=== PATIENT | female | born 1985 | race Two or more races ===

== ENCOUNTER 2018-06-23 04:00 | Emergency (ER) | payer SELFPAY ==
--- NOTE | 2018-06-23 04:09 | EDPHY ---
H & P Stated Complaint: RUQ abd pain and "I feel like ice my right hand" Time Seen by Provider: 06/23/18 04:09 HPI/ROS: HPI CHIEF COMPLAINT: Right upper quadrant abdominal pain. HISTORY OF PRESENT ILLNESS: Very pleasant 32-year-old female, denies any significant medical history does not take any daily medications except vitamins , she presents emergency room with right upper quadrant abdominal pain that started around 1:00 a.m. It is now 4:15 a.m.. It has been associated with nausea but no vomiting. No fever. Main complaint right upper quadrant sharp stabbing pain. Took ibuprofen prior to arrival did not help. She states she has had some right upper quadrant abdominal pain on and off over the past few weeks but usually goes away. Past Medical History: Denies significant medical history Past Surgical History: Social History: Denies drugs alcohol tobacco. Family History: Noncontributory ROS REVIEW OF SYSTEMS: 10 Systems were reviewed and negative with the exception of the elements mentioned in the history of present illness. Exam Constitutional triage nursing summary reviewed, vital signs reviewed, awake/ alert. Eyes normal conjunctivae and sclera, EOMI, PERRLA. HENT normal inspection, atraumatic, moist mucus membranes, no epistaxis, neck supple/ no meningismus, no raccoon eyes. Respiratory clear to auscultation bilaterally, normal breath sounds, no respiratory distress, no wheezing. Cardiovascular rate normal, regular rhythm, no murmur, no edema, distal pulses normal. Gastrointestinal mild tender palpation right upper quadrant,, no rebound, no guarding, normal bowel sounds, no distension, no pulsatile mass. Genitourinary no CVA tenderness. Musculoskeletal no midline vertebral tenderness, full range of motion, no calf swelling, no tenderness of extremities, no meningismus, good pulses, neurovascularly intact. Skin pink, warm, & dry, no rash, skin atraumatic. Neurologic awake, alert and oriented x 3, AAOx3, moves all 4 extremities equally, motor intact, sensory intact, CN II-XII intact, normal cerebellar, normal vision, normal speech. Psychiatric normal mood/affect. Heme/Lymph/Immune no lymphadenopathy. Differential diagnosis includes but is not limited to and in no particular order : Bowel obstruction, appendicitis, gallbladder disease, diverticulitis, colitis , enteritis, perforated viscus, gastritis, GERD, esophagitis, urinary tract infection, pyelonephritis, kidney stones Medical Decision Making: Plan for this patient IV establishment IV fluid bolus , ultrasound right upper quadrant to rule out gallbladder disease, IV Dilaudid 0.5 mg for pain control IV Zofran 4 mg for nausea, gentle IV fluids. Basic blood work. Re-evaluate. Re-evaluation: Ultrasound right upper quadrant shows gallstones but no evidence of pericholecystic fluid. No evidence of gallbladder wall thickening. No evidence of acute cholecystitis. Discussed this at length with the patient. [employer] ladies' locker room attendant was used. Answered all her questions. Her pain is well controlled at this time with IV Dilaudid. Abdomen is soft nontender. Patient agreeable going home. Recommend staying away from fatty greasy foods. Recommend following up with surgery as needed. Return to the ER for worsening abdominal pain. Fever, vomiting. Source: Patient - Personal History LMP (Females 10-55): 8-14 Days Ago Current Tetanus/Diphtheria Vaccine: No Current Tetanus Diphtheria and Acellular Pertussis (TDAP): No - Medical/Surgical History Hx Asthma: No Hx Chronic Respiratory Disease: No Hx Diabetes: No Hx Cardiac Disease: No Hx Renal Disease: No Hx Cirrhosis: No Hx Alcoholism: No Hx HIV/AIDS: No Hx Splenectomy or Spleen Trauma: No Other PMH: back surgery, , right breast surgery - Social History Smoking Status: Never smoked Constitutional: Initial Vital Signs Temperature (C) 37.0 C 06/23/18 04:03 Heart Rate 69 06/23/18 04:03 Respiratory Rate 16 06/23/18 04:03 Blood Pressure 128/84 H 06/23/18 04:03 O2 Sat (%) 96 06/23/18 04:03 O2 Delivery Mode Room Air Allergies/Adverse Reactions: No Known Allergies Allergy (Unverified 06/23/18 04:07) Home Medications: Medication Instructions Recorded NK [No Known Home Meds] 06/23/18 Medical Decision Making - Data Points Laboratory Results: Laboratory Results 06/23/18 04:30 06/23/18 04:30 06/23/18 06/23/18 06/23/18 04:30 04:30 04:30 WBC 9.53 10^3/uL H 10^3/uL (3.80-9.50) RBC 4.54 10^6/uL 10^6/uL (4.18-5.33) Hgb 13.9 g/dL g/dL (12.6-16.3) Hct 40.4 % % (38.0-47.0) MCV 89.0 fL fL (81.5-99.8) MCH 30.6 pg pg (27.9-34.1) MCHC 34.4 g/dL g/dL (32.4-36.7) RDW 12.0 % % (11.5-15.2) Plt Count 259 10^3/uL 10^3/uL (150-400) MPV 11.1 fL fL (8.7-11.7) Neut % (Auto) 69.5 % % (39.3-74.2) Lymph % (Auto) 22.6 % % (15.0-45.0) [place] % (Auto) 5.9 % % (4.5-13.0) Eos % (Auto) 1.6 % % (0.6-7.6) Baso % (Auto) 0.2 % L % (0.3-1.7) Nucleat RBC Rel Count 0.0 % % (0.0-0.2) Absolute Neuts (auto) 6.63 10^3/uL H 10^3/uL (1.70-6.50) Absolute Lymphs (auto) 2.15 10^3/uL 10^3/uL (1.00-3.00) Absolute Monos (auto) 0.56 10^3/uL 10^3/uL (0.30-0.80) Absolute Eos (auto) 0.15 10^3/uL 10^3/uL (0.03-0.40) Absolute Basos (auto) 0.02 10^3/uL 10^3/uL (0.02-0.10) Absolute Nucleated RBC 0.00 10^3/uL 10^3/uL (0-0.01) Immature Gran % 0.2 % % (0.0-1.1) Immature Gran # 0.02 10^3/uL 10^3/uL (0.00-0.10) Sodium 139 mEq/L mEq/L (135-145) Potassium 4.1 mEq/L mEq/L (3.3-5.0) Chloride 103 mEq/L mEq/L (97-110) Carbon Dioxide 24 mEq/l mEq/l (22-31) Anion Gap 12 mEq/L mEq/L (8-16) BUN 21 mg/dL mg/dL (7-23) Creatinine 0.5 mg/dL L mg/dL (0.6-1.0) Estimated GFR > 60 Glucose 110 mg/dL H mg/dL (70-100) Calcium 9.9 mg/dL mg/dL (8.5-10.4) Total Bilirubin 0.7 mg/dL mg/dL (0.1-1.4) Conjugated Bilirubin 0.1 mg/dL mg/dL (0.0-0.5) Unconjugated Bilirubin 0.6 mg/dL mg/dL (0.0-1.1) AST 20 IU/L IU/L (14-46) ALT 32 IU/L IU/L (9-52) Alkaline Phosphatase 79 IU/L IU/L (38-126) Total Protein 7.4 g/dL g/dL (6.3-8.2) Albumin 4.3 g/dL g/dL (3.5-5.0) Lipase 256 IU/L IU/L (23-300) Beta HCG, Qual NEGATIVE Urine Color Urine Appearance Urine pH Ur Specific [place] Urine Protein Urine Ketones Urine Blood Urine Nitrate Urine Bilirubin Urine Urobilinogen Ur Leukocyte Esterase Urine Glucose 06/23/18 04:20 WBC RBC Hgb Hct MCV MCH MCHC RDW Plt Count MPV Neut % (Auto) Lymph % (Auto) [place] % (Auto) Eos % (Auto) Baso % (Auto) Nucleat RBC Rel Count Absolute Neuts (auto) Absolute Lymphs (auto) Absolute Monos (auto) Absolute Eos (auto) Absolute Basos (auto) Absolute Nucleated RBC Immature Gran % Immature Gran # Sodium Potassium Chloride Carbon Dioxide Anion Gap BUN Creatinine Estimated GFR Glucose Calcium Total Bilirubin Conjugated Bilirubin Unconjugated Bilirubin AST ALT Alkaline Phosphatase Total Protein Albumin Lipase Beta HCG, Qual Urine Color YELLOW Urine Appearance CLEAR Urine pH 5.0 (5.0-7.5) Ur Specific [place] 1.026 (1.002-1.030) Urine Protein NEGATIVE (NEGATIVE) Urine Ketones NEGATIVE (NEGATIVE) Urine Blood NEGATIVE (NEGATIVE) Urine Nitrate NEGATIVE (NEGATIVE) Urine Bilirubin NEGATIVE (NEGATIVE) Urine Urobilinogen NEGATIVE EU EU (0.2-1.0) Ur Leukocyte Esterase NEGATIVE (NEGATIVE) Urine Glucose NEGATIVE (NEGATIVE) Medications Given: Discontinued Medications Hydromorphone HCl (Dilaudid) 0.5 mg IVP EDNOW ONE Stop: 06/23/18 04:16 Last Admin: 06/23/18 04:37 Dose: 0.5 mg Sodium Chloride (Ns) 1,000 mls @ 0 mls/hr IV EDNOW ONE; Wide Open PRN Reason: Protocol Stop: 06/23/18 04:16 Last Admin: 06/23/18 04:36 Dose: 1,000 mls Ondansetron HCl (Zofran) 4 mg IVP EDNOW ONE Stop: 06/23/18 04:16 Last Admin: 06/23/18 04:37 Dose: 4 mg Departure - Departure Disposition: Home, Routine, Self-Care Clinical Impression: Gallstones Abdominal pain Qualifiers: Abdominal location: right upper quadrant Qualified Code(s): R10.11 - Right upper quadrant pain Condition: Good Instructions: Biliary Colic (ED), Gallstones (ED), Acute Abdominal Pain (ED) Referrals: NONE *PRIMARY CARE P,. [Primary Care Provider] - As per Instructions Reece Raymundo MD [Medical Doctor] - As per Instructions
[2018-06-23] MEDS ORDERED: NS 1,000 ML IV ONE (04:15)
[2018-06-23] MEDS ORDERED: HYDROmorphONE/DILAUDID 2 MG/ML INJ IVP ONE (04:15)
[2018-06-23] MEDS ORDERED: ONDANSETRON 4 MG/2 ML VIAL IVP ONE (04:15)
[2018-06-23 04:35] LABS: PLATELET COUNT 259 10^3/uL (150-400)
[2018-06-23 06:16] VITALS: BP 123/80
== END 2018-06-23 06:12 | disposition home or self-care (01) ==
DX: K80.20 Calculus of gallbladder without cholecystitis without obstruction (principal); R10.11 Right upper quadrant pain
CPT/HCPCS: 96374; J1170; J2405

== ENCOUNTER 2018-08-12 19:43 | Emergency (ER) | payer OTHER ==
[2018-08-12] MEDS ORDERED: NS 1,000 ML IV ONE (19:59)
[2018-08-12] MEDS ORDERED: HYDROmorphONE/DILAUDID 2 MG/ML INJ IVP ONE (19:59)
[2018-08-12 20:30] LABS: PLATELET COUNT 215 10^3/uL (150-400)
[2018-08-12] MEDS ORDERED: DICYCLOMINE 10 MG CAP PO ONE (22:15)
--- NOTE | 2018-08-13 00:26 | EDPHY ---
H & P Stated Complaint: R upper quad pain x 3 days, worse w/ eating Time Seen by Provider: 08/12/18 19:54 HPI/ROS: Chief complaint: Abdominal pain History of present illness: This is a 32-year-old female who presents to the emergency department for evaluation of abdominal pain. She reports she has had pain for approximately the last 4 days. Pain is in the right, upper aspect of the abdomen. She has had some nausea and vomiting. It is worse after she eats. She has a known history of cholelithiasis, diagnosed at this hospital in May. This feels similar. No report of fevers. No report of changes in bowel habits. No report of changes of urinary habits. Review of systems: A 10 point review of systems was obtained and other than described above was negative - Personal History LMP (Females 10-55): 15-21 Days Ago - Medical/Surgical History Hx Asthma: No Hx Chronic Respiratory Disease: No Hx Diabetes: No Hx Cardiac Disease: No Hx Renal Disease: No Hx Cirrhosis: No Hx Alcoholism: No Hx HIV/AIDS: No Hx Splenectomy or Spleen Trauma: No Other PMH: back surgery, , right breast surgery - Social History Smoking Status: Never smoked - Physical Exam Exam: General Appearance: Alert, nontoxic. Eyes: Pupils equal and round no pallor or injection. ENT, Mouth: Mucous membranes moist. Respiratory: There are no retractions, lungs are clear to auscultation. Cardiovascular: Regular rate and rhythm. Gastrointestinal: Bowel sounds are normal. Abdomen is soft and nondistended. There is tenderness in the right upper quadrant. Positive Barber sign. Neurological: Alert and oriented x4. Strength and sensation intact and symmetrical. Skin: Warm and dry, no rashes. Musculoskeletal: Neck is supple non tender. Extremities are symmetrical, full range of motion. Psychiatric: Patient is oriented X 3, there is no agitation. Constitutional: Initial Vital Signs Temperature (C) 37.0 C 08/12/18 19:47 Heart Rate 88 08/12/18 19:47 Respiratory Rate 20 18 19:47 Blood Pressure 107/86 H 18 19:47 O2 Sat (%) 99 08/12/18 19:47 O2 Delivery Mode Room Air O2 (L/minute) 2 Allergies/Adverse Reactions: No Known Allergies Allergy (Verified 08/12/18 19:46) Home Medications: Medication Instructions Recorded NK [No Known Home Meds] 06/23/18 Medical Decision Making - Diagnostics Imaging Results: Imaging Impressions Abdomen Ultrasound 08/12/18 19:59 Impression: Cholelithiasis with thickening of the gallbladder wall and positive Barber's sign, Suggestive of acute cholecystitis. Imaging: Discussed imaging studies w/ call centre supervisor Radiologist ED Course/Re-evaluation: Patient is discussed with my secondary supervising physician Dr. Ralph Alvarado. Patient presents with abdominal pain. Ultimately evaluation reveals acute cholecystitis. In addition she does appear to be although she states she had a positive test last week and suspected as much. Pain has been well controlled. I have consulted with on-call general surgery, Dr. Jose Norris. He has taken considerable time talking with the patient using an railroad crane operator to ensure no errors talking with patient. Patient was offered admission. She has declined. She will be discharged home. She will be given Bentyl 20 mg to take every 8 hr and then lay on her right side per Dr. Norris. She is asked to follow up with general surgery as well as an OBGYN. Home care is discussed. She is given strict return precautions. Differential Diagnosis: Included but not limited to gastritis, gastroenteritis, biliary tract disease, pancreatitis, colitis, urinary tract disease, an associated complications - Data Points Laboratory Results: Laboratory Results 08/12/18 20:15 08/12/18 20:15 08/12/18 08/12/18 08/12/18 20:42 20:15 20:15 WBC RBC Hgb Hct MCV MCH MCHC RDW Plt Count MPV Neut % (Auto) Lymph % (Auto) [place] % (Auto) Eos % (Auto) Baso % (Auto) Nucleat RBC Rel Count Absolute Neuts (auto) Absolute Lymphs (auto) Absolute Monos (auto) Absolute Eos (auto) Absolute Basos (auto) Absolute Nucleated RBC Immature Gran % Immature Gran # Sodium 139 mEq/L mEq/L (135-145) Potassium 3.8 mEq/L mEq/L (3.3-5.0) Chloride 102 mEq/L mEq/L (97-110) Carbon Dioxide 28 mEq/l mEq/l (22-31) Anion Gap 9 mEq/L mEq/L (6-14) BUN 10 mg/dL mg/dL (7-23) Creatinine 0.6 mg/dL mg/dL (0.6-1.0) Estimated GFR > 60 Glucose 111 mg/dL H mg/dL (70-100) Calcium 9.5 mg/dL mg/dL (8.5-10.4) Total Bilirubin 0.5 mg/dL mg/dL (0.1-1.4) Conjugated Bilirubin 0.2 mg/dL mg/dL (0.0-0.5) Unconjugated Bilirubin 0.3 mg/dL mg/dL (0.0-1.1) AST 17 IU/L IU/L (14-46) ALT 31 IU/L IU/L (9-52) Alkaline Phosphatase 80 IU/L IU/L (38-126) Total Protein 7.1 g/dL g/dL (6.3-8.2) Albumin 4.2 g/dL g/dL (3.5-5.0) Lipase 199 IU/L IU/L (23-300) Beta HCG, Qual POSITIVE Beta HCG, Quant 5182.50 mIU/mL H mIU/mL (0.00-4.83) 08/12/18 20:15 WBC 12.71 10^3/uL H 10^3/uL (3.80-9.50) RBC 4.21 10^6/uL 10^6/uL (4.18-5.33) Hgb 12.8 g/dL g/dL (12.6-16.3) Hct 37.3 % L % (38.0-47.0) MCV 88.6 fL fL (81.5-99.8) MCH 30.4 pg pg (27.9-34.1) MCHC 34.3 g/dL g/dL (32.4-36.7) RDW 12.5 % % (11.5-15.2) Plt Count 215 10^3/uL 10^3/uL (150-400) MPV 11.1 fL fL (8.7-11.7) Neut % (Auto) 72.9 % % (39.3-74.2) Lymph % (Auto) 18.3 % % (15.0-45.0) [place] % (Auto) 7.1 % % (4.5-13.0) Eos % (Auto) 1.3 % % (0.6-7.6) Baso % (Auto) 0.2 % L % (0.3-1.7) Nucleat RBC Rel Count 0.0 % % (0.0-0.2) Absolute Neuts (auto) 9.27 10^3/uL H 10^3/uL (1.70-6.50) Absolute Lymphs (auto) 2.33 10^3/uL 10^3/uL (1.00-3.00) Absolute Monos (auto) 0.90 10^3/uL H 10^3/uL (0.30-0.80) Absolute Eos (auto) 0.16 10^3/uL 10^3/uL (0.03-0.40) Absolute Basos (auto) 0.02 10^3/uL 10^3/uL (0.02-0.10) Absolute Nucleated RBC 0.00 10^3/uL 10^3/uL (0-0.01) Immature Gran % 0.2 % % (0.0-1.1) Immature Gran # 0.03 10^3/uL 10^3/uL (0.00-0.10) Sodium Potassium Chloride Carbon Dioxide Anion Gap BUN Creatinine Estimated GFR Glucose Calcium Total Bilirubin Conjugated Bilirubin Unconjugated Bilirubin AST ALT Alkaline Phosphatase Total Protein Albumin Lipase Beta HCG, Qual Beta HCG, Quant Medications Given: Discontinued Medications Dicyclomine HCl (Bentyl) 20 mg PO EDNOW ONE Stop: 08/12/18 22:16 Last Admin: 08/12/18 22:20 Dose: 20 mg Hydromorphone HCl (Dilaudid) 1 mg IVP EDNOW ONE Stop: 08/12/18 20:00 Last Admin: 08/12/18 20:14 Dose: 1 mg Sodium Chloride (Ns) 1,000 mls @ 0 mls/hr IV EDNOW ONE; Wide Open PRN Reason: Protocol Stop: 08/12/18 20:00 Last Admin: 08/12/18 20:14 Dose: 1,000 mls Departure - Departure Disposition: Against Medical Advice Clinical Impression: Cholecystitis Condition: Fair
[2018-08-13 00:50] VITALS: BP 122/63
--- NOTE | 2018-08-13 01:45 | GCON ---
REASON FOR CONSULTATION: Cholecystitis with biliary colic, cholelithiasis. Interview/exam was carried out using the video knife machine operator. HISTORY: The patient is a 32-year-old [place] female, who moved to [place] in 2010. She has 4 children (2-1/2, 5, 7, 8) and is currently . In May of this year (prior to ), she was seen at [facility] for biliary colic and cholelithiasis. She was advised to have her gallbladder removed at that time, but did not. Since that time, she has been having, on an approximately a weekly basis, attacks of colicky right upper quadrant pain which often would last 8 hours. The current episode has lasted 4 days, which prompted her presentation to the hospital. Her only prior abdominal surgery has been 1 . She has not had trouble with her prior pregnancies. SOCIAL HISTORY: She does not smoke, nor does she drink. ALLERGIES: She has no known drug allergies. MEDICATIONS: She currently takes Tylenol, ibuprofen, as well as "another drug" that she cannot remember. She does not take vitamins yet. She saw an log chain worker for the first time last week and could not recall the log chain worker's name. PAST SURGICAL HISTORY: Her surgeries have included removal of a benign, tennis ball-sized, mass from her left scapular region. PAST MEDICAL HISTORY: There is no history of rheumatic fever, tuberculosis, hepatitis, or transfusions. REVIEW OF SYSTEMS: She has reflux. She has had a burning chest pain, which she has attributed to her gallbladder. It happens only when she lies down. She will try to separate her meals from the supine position by at least 4 hours. She also, since her last ( 2-1/2 years ago), has had episodes of tachypnea and tachycardia. These last approximately 5 minutes and are associated with mild activity most of the time. At the time, it was dismissed as a nonissue. An ultrasound examination shows approximately 5 small gallstones. She does have a mild thickening of the gallbladder wall and a positive Barber sign on ultrasound examination. It is for that reason I was asked to come see the patient. PHYSICAL EXAMINATION: Her vital signs show a blood pressure of 122/68, heart rate of 75, respiratory rate of 18, room air sat is 96%, temperature is 36.9. On physical examination, she is awake and alert. She appears to be neurologically intact. I do not appreciate any thyroid enlargement. Her lungs are clear to auscultation. Back examination shows a hypertrophic scar over her left scapula. There is no cervical, supraclavicular, axillary, or inguinal lymphadenopathy. Cardiac exam shows S1, S2 to be normal. I do not appreciate any murmurs, rubs, or gallops. Abdomen is generous. There is a well healed c- section scar without a hypertrophic scar. She is tender with cough at 4/10 in the right upper abdomen. To palpation, left upper quadrant is 1, left mid abdomen is 2, left lower quadrant is 2, epigastrium is 1, periumbilical area is 1, suprapubic area is 1, right upper quadrant is 6 with a positive Barber sign. It is 4 in the right mid abdomen and 2 in the right lower quadrant. LABORATORY DATA: Laboratories reveal a white count of 12.1, hematocrit of 37, platelet count of 215. Her MCV and MCHC, as well as MCH are all in the normal range. Beta hCG is 5182. Her bilirubin is 0.5. She is much better, having taken Bentyl and lying on her right side, but she has not totally returned to normal by her estimation. I have suggested to her that she come into the hospital to see if we could quiet this process down and avoid surgery, as she is still in her first trimester (her is only 6 weeks along). She has refused, as she has to take care of her 4 children at home and cannot find someone else to do so. I have suggested then that we send her home with Bentyl. When she has an attack , she is to lie on her right side and take the Bentyl. She is to return if the pain becomes much more difficult for her. I have suggested that she return to see her log chain worker. Also with her intermittent episodes of tachypnea and tachycardia, I have suggested that she obtain a cardiology consultation for an echo to make sure that there is not any evidence of right heart strain or structural abnormality. I wonder if she had developed a PE with her last and still is suffering the consequences or if this is just a PAT variant.. Certainly, I would not do a PE evaluation with the associated radiation at this point, but an echo may be able to show us right heart strain. She will follow up with Blas Dwyer and Anna's office for gallbladder issues. /[id number]/MODL MTDD
== END 2018-08-13 00:47 | disposition left against medical advice (07) ==
LOC: UNDOADMIN 08-13 00:12
DX: O99.611 Diseases of the digestive system complicating pregnancy, first trimester (principal); K80.00 Calculus of gallbladder with acute cholecystitis without obstruction; O34.219 Maternal care for unspecified type scar from previous cesarean delivery; O99.89 Other specified diseases and conditions complicating pregnancy, childbirth and the puerperium; R00.0 Tachycardia, unspecified; R06.82 Tachypnea, not elsewhere classified; Z3A.01 Less than 8 weeks gestation of pregnancy
CPT/HCPCS: 96374; J1170

== ENCOUNTER 2018-08-13 15:42 | Observation (INO) | payer OTHER ==
[2018-08-13] MEDS ORDERED: HYDROmorphONE/DILAUDID 1 MG/ML INJ IVP PRN (15:52)
[2018-08-13] MEDS ORDERED: ONDANSETRON 4 MG/2 ML VIAL IVP PRN ×2 (15:52→20:43)
[2018-08-13] MEDS ORDERED: DICYCLOMINE 20 MG TAB PO PRN (15:57)
[2018-08-13] MEDS ORDERED: NS 1,000 ML IV SCH (16:00)
[2018-08-13 16:50] LABS: PLATELET COUNT 221 10^3/uL (150-400)
[2018-08-13 17:22] LABS: INR 1.01 (0.83-1.16); PROTIME(PATIENT) 13.5 SEC (12.0-15.0)
--- NOTE | 2018-08-13 17:25 | GHP ---
DATE OF ADMISSION: 08/13/2018 ADMISSION DIAGNOSES: 6 week with acute cholecystitis with cholelithiasis. HISTORY OF PRESENT ILLNESS: Please see the ER consultation note of last evening. She came into the ER last night. She had acute cholecystitis and a beta hCG consistent with a 6 week . I had strongly suggested she come into the hospital to see if we could settle down her g allbladder, but she was unable to do that as she had to get home to take care of her children. I spo ke with her again this morning. She was still having pain and I was able to convince both the patien t and her that it would be good idea to return to the hospital. She returned to the hospital approximately 3:30 this afternoon. She has not eaten all day because she knows that makes her pain worse. At this point, she still has a positive Barber sign on examination. She has distinct pain in the right upper quadrant. PLAN: Her exam is otherwise unremarkable. Laboratories are pending. Obstetrical consult will be re ndered by Dr. Carrie Gomez, regarding the risks for surgery versus observation and pain control versu s cholecystostomy tube drainage. In the meantime, she will be started on IV fluids and antibiotics. Bentyl has again been ordered for pain control, as is high dose Tylenol and Dilaudid. Because of her history of a tachypneic and tachycardia with minimal exertion since her last 2-1/2 years ago, a cardiac echo will be obtained to see if there is any signs of pulmonary hypertens ion that could be consistent with embolization with the past . She understands the planned procedure. Again, the interval exam and history are unchanged. Please reference the complete note o f last evening.. /[id number]/MODL
[2018-08-13] MEDS ORDERED: HYDROmorphONE/DILAUDID 2 MG/ML INJ IVP PRN (17:30)
--- NOTE | 2018-08-13 18:45 | PDCONSULT ---
Molding Supervisor Note: Consult from Dr. Norris re:early viability and risks associated with surgery. sales support representative used through tablet, Croatian, sales support representative Vicki, #[id number] HPI: 32 at 5w5d gestation by LMP, presented to the ED last night and returned for direct admission today, with a diagnosis of cholelithiasis and acute cholecystitis, per Dr. Norris. Pt's LMP is approximate, has reg menses q 27-28 days. Positive test about 2 weeks ago. Has not had any vaginal bleeding. Pt's works, and she takes care of her children, and needs to feel well to do this. Says she desires cholecystectomy despite there may be an increased risk of miscarriage when surgery is done in the first trimester. Ob hx: children are age 8, 7, 5 and 2.5 years old. P1-2 = , P3= C/S, P4 = PMH: denies Medication: only pain medication received from ED Allergies: NKDA PSH: C/S, removal of cysts from her shoulder, R breast lumpectomy - benign FamHx: no surgical or anesthetic complications O: Temp Pulse Resp BP Pulse Ox 36.5 C 77 16 117/60 97 08/13/18 15:58 08/13/18 15:58 08/13/18 15:58 08/13/18 15:58 08/13/18 15:58 gen - pleasant, NAD abd - soft, mild tenderness in RUQ, none in lower quadrant Quant Hcg - 5182 at 2000 11 7469 at 1600 today = 44% increase in 20 hours Imp: 32 at 5w5d gestation with cholelithiasis and acute cholecystitis Plan: Desires surgery so she can feel better to take care of her children - unclear to me if she understands drainage tube is a temporary solution, for her to get home to her kids sooner, and then can plan for surgery in the early second trimester. I very clearly explained that surgery done in the first trimester has been associated with an increase risk of miscarriage in some studies. The patient very clearly said she is willing to accept those risks. Will get a formal pelvic ultrasound to establish viability - as this could change the management plan. Dr. Norris informed and will contact after US done. Carrie Gomez MD, [facility]
[2018-08-13] MEDS ORDERED: HEPARIN 5,000 UNIT/0.5 ML INJ ONE (19:56)
[2018-08-13] MEDS ORDERED: ceFAZolin 1 GM/5 ML SYR ONE (19:56)
[2018-08-13] MEDS ORDERED: IOTHALAMATE MEG (CONRAY) 50 ML VIAL IV ONE (19:56)
--- NOTE | 2018-08-13 20:31 | ECHO ---
[email or web address] [address] Main: [phone] Fax: Transthoracic Echocardiogram Name: BRIDGETT GONGORA MR#: [id number] Study Date: 08/13/2018 Study Time: 07:56 PM Date of : 1985 Age: 32 year(s) Height: 172.7 cm (68 in.) Weight: 88.45 kg (195 lb.) BSA: 2.02 m2 Gender: Female Examination: Echo Indication: R/O right heart strain/pulmonary HTN Pt tachycardia and tachypnea for 2.5 yrs with exercise Image Quality: Contrast: Requested by: Jose Norris BP: 117 mmHg/60 mmHg Heart Rate: Rhythm: Indication: R/O right heart strain/pulmonary HTN Pt tachycardia and tachypnea for 2.5 yrs with exercise Procedure Staff Fertilizing Machine Operator: Kaylyn Hagan [facility] Reading Physician: Jhon Hodges MD Requesting Provider: Conclusions: Normal size left ventricle. No LV hypertrophy. Global hypercontractility of the left ventricle. The ejection fraction is estimated to be 70-75 %. No regional wall motion abnormality. The mitral valve is normal in appearance and function. Trivial mitral valve regurgitation. Trivial tricuspid valve regurgitation. Measurements: Chambers Valvular Assessment AV/MV Valvular Assessment TV/PV Normal Normal Normal Name Value Range Name Value Range Name Value Range Ao Silvia (MM): 2.6 cm (2.2 cm-3.7 AV Vmax: 1.60 m/s (1 m/s-1.7 TR Vmax: 2.55 mm/s ( - ) cm) m/s) TR PGmax: 26 mmHg ( - ) IVSd (2D): 0.7 cm (0.6 cm-1.1 AV meanP mmHg ( - ) syst. PAP: 31 mmHg ( - ) cm) MV E Vmax: 0.89 m/s ( - ) LVDd (2D): 4.4 cm (3.9 cm-5.3 MV A Vmax: 0.57 m/s ( - ) cm) MV E/A: 1.56 ( - ) LVDs (2D): 3.0 cm (2.1 cm-4 cm) LVPWd (2D): 0.8 cm ( - ) LVEF (MOD4): 74 % (>=55 %) EF Range: 70-75 % Continued Measurements: Chambers Valvular Assessment AV/MV Valvular Assessment TV/PV Patient: BRIDGETT GONGORA Study Date: 08/13/2018 Page 1 of 2 07:56 PM Name Value Name Value Name Value LADs: 3.3 cm MV E' Septal: 0.13 m/s CVP (est.): 5 mmHg LADs Lon.3 cm MV E/E' Septal: 6.90 LA Area: 18.5 cm2 MV E/E' Lateral: 6.00 LA Volume: 50 ml LA Volume Index: 24.8 ml/m2 Additional Vessels Name Value Ao Ascendin.9 cm Findings: Left Ventricle: Normal size left ventricle. No LV hypertrophy. Global hypercontractility of the left ventricle. The ejection fraction is estimated to be 70-75 %. No regional wall motion abnormality. Normal diastolic LV function. Right Ventricle: Normal size right ventricle. Left Atrium: The left atrium is normal in size. Right Atrium: The right atrium is normal in size. Mitral Valve: The mitral valve is normal in appearance and function. Trivial mitral valve regurgitation. Aortic Valve: The aortic valve is normal in appearance and function. The aortic valve is tri-leaflet. Tricuspid Valve: The tricuspid valve is normal in appearance and function. Trivial tricuspid valve regurgitation. The pulmonary artery pressure is normal. Pulmonic Valve: The pulmonic valve is normal in appearance and function. Aorta: The aorta is normal. Pericardium: No pericardial effusion. (No Signature Object) Patient: BRIDGETT GONGORA Study Date: 08/13/2018 Page 2 of 2 07:56 PM [id number]
[2018-08-13] MEDS ORDERED: MIDAZOLAM 2 MG/2 ML VIAL IVP ONE (20:43)
[2018-08-13] MEDS ORDERED: NALOXONE HCL 0.4 MG/ML INJ IVP PRN (20:43)
[2018-08-13] MEDS ORDERED: ALBUTEROL 3 ML DEYVIAL IH PRN (20:43)
--- NOTE | 2018-08-13 20:43 | PDANEPAE ---
ANE Past Medical History - Pulmonary History Hx Oxygen in Use at Home: No Hx Sleep Apnea: No - Endocrine History Hx Diabetes: No - Chronic Pain History Chronic Pain: No ANE Review of Systems Review of Systems: ANE Patient History - Allergies Allergies/Adverse Reactions: No Known Allergies Allergy (Verified 08/12/18 19:46) - Home Medications Home Medications: Acetaminophen [Tylenol 325mg (*)] 325 mg PO Q6 PRN 08/13/18 [Last Taken 08/12/18 ] Dicyclomine [Bentyl 20 MG (*)] 20 mg PO Q8H PRN 08/13/18 [Last Taken 08/13/18 09 :00 20MG] - Smoking Hx Smoking Status: Never smoked ANE Labs/Vital Signs - Labs Result Diagrams: 08/13/18 16:40 08/13/18 16:40 - Vital Signs Blood Pressure: 121/81 Heart Rate: 84 Respiratory Rate: 16 O2 Sat (%): 96 Height: 173.99 cm Weight: 88.405 kg ANE Physical Exam - Airway Neck exam: FROM Mallampati Score: Class 2 Mouth exam: normal dental/mouth exam - Pulmonary Pulmonary: no respiratory distress - Cardiovascular Cardiovascular: regular rate and rhythym - ASA Status ASA Status: I, E ANE Anesthesia Plan Anesthesia Plan: general endotracheal anesthesia
[2018-08-13] MEDS ORDERED: fentaNYL 100 MCG/2 ML INJ ONE ×3 (20:47→23:12)
[2018-08-13] MEDS ORDERED: PROPOFOL 200 MG/20 ML VIAL ONE (20:48)
[2018-08-13] MEDS ORDERED: LR 1,000 ML IV ONE (20:48)
[2018-08-13] MEDS ORDERED: LIDOCAINE 2% 100 MG/5 ML SYR ONE (20:48)
[2018-08-13] MEDS ORDERED: DEXAMETHASONE 4 MG/ML VIAL ONE ×2 (20:48)
[2018-08-13] MEDS ORDERED: ROCURONIUM 50 MG/5 ML VIAL ONE (20:48)
[2018-08-13] MEDS ORDERED: METOCLOPRAMIDE 10 MG/2 ML VIAL ONE (20:48)
[2018-08-13] MEDS ORDERED: ceFAZolin 2 GM/DEXTROSE 100 ML IV SCH (22:00)
[2018-08-13] MEDS ORDERED: ACETAMINOPHEN 500 MG TAB PO SCH (22:00)
[2018-08-13] MEDS: ceFAZolin 1 GM/5 ML SYR ONE ×2 (22:22→22:37)
--- NOTE | 2018-08-13 23:10 | POSTANESTH ---
Post Anesthetic Evaluation Cardiovascular Status: Similar to Pre-Op Cond Respiratory Status: Similar to Pre-op Cond. Level of Consciousness/Mental Status: Mildly Sleepy, Arousable Pain Control: Adequate, Prn Tx Ordered Nausea/Vomiting Control: Adequate, Prn Tx Ordered Complications Possibly Related to Anesthesia: None Noted
[2018-08-13] MEDS: fentaNYL 100 MCG/2 ML INJ IVP PRN ×3 (23:14→23:28)
--- NOTE | 2018-08-14 00:02 | POSTOPPROG ---
Post Op Note Date of Operation: 08/13/18 Surgeon: Jose Norris Anesthesiologist: Bc Anesthesia: GET(General Endotracheal) Pre-op Diagnosis: Acute Cholecystitis with cholelithiasis, 6 week Post-op Diagnosis: Acute Cholecystitis with cholelithiasis, 6 week Indication: Acute Cholecystitis with cholelithiasis, 6 week Procedure: Laparoscopic cholecystectomy Findings: Acute Cholecystitis with cholelithiasis, 6 week Inf/Abcess present in the surg proc area at time of surgery?: No EBL: Minimal Total fluids administered: 1000 Complications: Endobag leak with bile spill Specimen(s): gallbladder
[2018-08-14] MEDS: ACETAMINOPHEN 500 MG TAB PO SCH ×3 (00:32→16:19)
[2018-08-14] MEDS ORDERED: PROMETHAZINE HCL 25 MG/ML INJ IVP PRN (01:06)
[2018-08-14] MEDS: HYDROmorphONE/DILAUDID 2 MG/ML INJ IVP PRN ×2 (01:10→04:31)
[2018-08-14 05:46] LABS: PLATELET COUNT 214 10^3/uL (150-400)
--- NOTE | 2018-08-14 06:58 | GOP ---
DATE OF OPERATION: 08/13/2018 SURGEON: Jose Norris MD ANESTHESIA: General endotracheal. ANESTHESIOLOGIST: Dr. Yancey. PREOPERATIVE DIAGNOSIS: Acute cholecystitis with cholelithiasis, 6 week . POSTOPERATIVE DIAGNOSIS: Acute cholecystitis with cholelithiasis, 6 week . PROCEDURE PERFORMED: Laparoscopic cholecystectomy FINDINGS: Acute cholecystitis with cholelithiasis, 6 week . Note is made this patient underwent extensive counseling before surgery. I strongly recommended for the safety of the child that we undergo a percutaneous cholecystostomy tube placement and attempt the surgery when she was in her 2nd trimester. In spite of Dr. Gomez, MANAGER ADMINISTRATION and my input that is not her preferred approach. She would like to go ahead with a cholecystectomy. She understands the risks involved to the fetus. With that understanding we have agreed to proceed. SPECIMENS: Gallbladder. ESTIMATED BLOOD LOSS: Minimal. INDICATIONS: Acute cholecystitis with cholelithiasis, 6 week . DESCRIPTION OF PROCEDURE: The patient was placed on the operating table. After induction of adequate general endotracheal anesthesia, the abdomen was carefully prepped and draped. A surgical time-out was carried out and agreed to by all members of the operative team. A curvilinear incision was made in the infraumbilical fold. Dissection was continued down to the rectus sheath which was elevated between 2 Allis clamps. The rectus sheath was entered in the midline. A pursestring of #0 PDS was placed in the fascia level. The peritoneum was entered. Trocar was positioned. Intra-abdominal insufflation was carried out to 15 mmHg. She was placed in the reverse Trendelenburg position. A 5 mm epigastric mid epigastric port was placed. Two 5 mm right upper quadrant ports were placed. Attempt was made to drain the gallbladder, but the bile was very thick and this was not possible. A clamp was placed across the puncture site to prevent further leakage. The gallbladder was elevated. There were dense adhesions of the gallbladder wall. These were carefully taken down with Harmonic scalpel. Once I was able to clear the gallbladder to the level of the infundibulum a the 2nd grasper was placed and the infundibulum was elevated. A right angle dissector was used to carefully clear the cystic duct circumferentially. This was triply clipped on the patient's side, singly clipped on the gallbladder side. There were several lymphatic and vascular structures identified. All were clipped twice on the patient's side and singly clipped on the gallbladder side and divided. The gallbladder was carefully removed from its fossa using a Harmonic scalpel. Hemostasis was excellent. The gallbladder was placed in an Endo Catch bag. Careful attempt was made to deliver via the umbilical port with a rent developed in the EndoCatch bag. The midline incision was extended. The specimen was removed. Pneumoperitoneum was re-established. Irrigation was carried out and all the spilled bile (note that it was thickened and tar-like) was identified and carefully aspirated. Heparin Ancef containing irrigant was used throughout the case and that was continued at this point. The biliary fossa was carefully checked. Hemostasis was excellent. Ports removed under direct vision. A new pursestring was placed at the fascial level of the infraumbilical midline fascial defect. An inverted simple suture of #0 PDS was placed in the midpoint of the fascial defect. Inverted simple sutures tied 1st, then the pursestring was tied. The subcutaneous tissue was well irrigated. Hemostasis was excellent. All skin incisions were closed with inverted simple sutures of #4-0 Vicryl. Mastisol and Steri-Strips were placed. The patient tolerated the procedure well and was transferred to recovery in stable and satisfactory condition. FLUIDS ADMINISTERED: 1000 cc. DRAINS: None. COMPLICATIONS: Leak in EndoCatch bag with resulting bile leak (contained). Cultures were obtained of the bile. /[id number]/MODL MTDD
--- NOTE | 2018-08-14 09:41 | ASMTCMCOM ---
CM Note CM Note Notes: Pt is a 32 y/o female admitted for acute cholecystis with cholelithasis. Pt had surgery w/ Dr. Norris. Pt is 6 weeks with her second child. Pt will most likely not have any d/c needs. CM available for changes. Plan: Independent Date Signed: 08/14/2018 09:41 AM Electronically Signed By:MYRA Iraheta
[2018-08-14] MEDS: HYDROCODONE/APAP 5/325 TAB PO PRN ×3 (12:32→18:34)
[2018-08-14 16:10] VITALS: BP 114/73
--- NOTE | 2018-08-14 17:46 | SOAPPROG ---
SOAP Progress Note Assessment/Plan: Assessment/Plan: 32 Y F 6 weeks gravid, s/p lap carlo c Dr. Norris, POD#1. Seen and examined with Dr. Salinas. Appreciate OB's involvement. Advance diet. If tolerates and does well then d/c to home. D/c instructions discussed. Caution with narcotics discussed. Per RN, will get approval from OB for norco before taking my verbal order to initiate it. S: pain controlled. tolerating clears O: alert, nad ctab rrr abd soft, +BS, inc cdi 08/14/18 17:44 Objective: Vital Signs Temp Pulse Resp BP Pulse Ox 37.1 C 86 16 114/73 97 08/14/18 16:00 08/14/18 16:00 08/14/18 16:00 08/14/18 16:00 08/14/18 16:00 Microbiology 08/13/18 22:25 Gram Stain - Final Gallbladder - Eswab Laboratory Results 08/14/18 04:51 08/14/18 04:51 08/13/18 08/14/18 08/15/18 05:59 05:59 05:59 Intake Total 0 400 Output Total 20 500 Balance 2040 -100 PT 13.5 SEC (12.0-15.0) 08/13/18 16:56 INR 1.01 (0.83-1.16) 08/13/18 16:56 ICD10 Worksheet Patient Problems: Problems Problem Status Onset Cholecystitis Acute
== END 2018-08-14 19:01 | disposition home or self-care (01) ==
LOC: F3E 15:50
PROVIDERS: ADMIT Surgery; ATTEND Surgery
PROC: 0FT44ZZ Resection of Gallbladder, Percutaneous Endoscopic Approach (ICD-10-PCS; principal; 2018-08-13 23:00)
DX: K80.00 Calculus of gallbladder with acute cholecystitis without obstruction (principal); Z3A.01 Less than 8 weeks gestation of pregnancy
CPT/HCPCS: G0378; J0690; J1100; J1170; J1644; J2001; J2250; J2270; J2405; J2550; J2704; J2765; J3010; Q9961